=== PATIENT | female | born 1975 | race Caucasian/White ===

== ENCOUNTER 2017-08-22 10:59 | Emergency (ER) | payer SELFPAY ==
[~2017-08-22] VITALS: Ht 162.5 cm; Wt 90.7 kg
[2017-08-22] MEDS ORDERED: Peridex 473 ML473 ML PO (11:42)
[2017-08-22] MEDS ORDERED: PENICILLIN VK500 MG PO (11:42)
[2017-08-22] MEDS ORDERED: NAPROSYN500 MG PO (11:42)
== END 2017-08-22 14:11 | disposition home or self-care (01) ==
LOC: ED 10:59
DX: K02.9 Dental caries, unspecified (principal); R03.0 Elevated blood-pressure reading, without diagnosis of hypertension

== ENCOUNTER 2021-10-07 10:27 | Emergency (ER) | payer OTHER ==
[~2021-10-07] VITALS: Ht 162.5 cm; Wt 77.1 kg
[~2021-10-07 10:27] MED LIST: NAPROSYN500 MG PO; PENICILLIN VK500 MG PO; Peridex 473 ML473 ML PO
[2021-10-07] MEDS ORDERED: Motrin,Rufen800 MG PO (14:02)
[2021-10-07] MEDS ORDERED: CYCLOBENZAPRINE5 M3 PO (14:02)
== END 2021-10-07 14:27 | disposition home or self-care (01) ==
LOC: ED 10:27
DX: M54.12 Radiculopathy, cervical region (principal)

== ENCOUNTER 2023-11-16 07:27 | Emergency (ER) | payer OTHER ==
[~2023-11-16] VITALS: Wt 93.4 kg
[~2023-11-16 07:27] MED LIST changes: +CYCLOBENZAPRINE5 M3 PO; +Motrin,Rufen800 MG PO
[2023-11-16] MEDS ORDERED: PRENATAL MULTI1 EAC3 PO (07:46)
[2023-11-16 07:47] LABS: BASO % 0.2 % (0.0-1.0); EOS # 0.1 10*3/uL (0.0-0.4); EOS % 0.5 % (1.0-4.0); HEMATOCRIT 34.3 % (37.0-47.0); LYMPH # 2.1 10*3/uL (1.3-4.4); LYMPH % 16.1 % (27.0-41.0); MEAN CELL VOLUME 93.2 fl (81.0-99.0); MEAN CORPUSCULAR HGB 29.1 pg (27.0-31.0); MEAN CORPUSCULAR HGB CONC 31.2 g/dl (33.0-37.0); MEAN PLATELET VOLUME 10.3 fl (9.6-12.3); MONO # 0.8 10*3/uL (0.1-1.0); MONO % 6.1 % (3.0-9.0); NEUT % 76.7 % (47.0-73.0); PLATELET COUNT AUTOMATED 333 10*3/uL (130-400); RED BLOOD COUNT 3.68 10*6/uL (4.10-5.10); RED CELL DISTRI WIDTH 13.5 % (0-14.5)
[2023-11-16 08:20] LABS: VENOUS PH 7.4 (7.37-7.45)
== END 2023-11-16 09:15 | disposition short-term general hospital (02) ==
LOC: ED 07:27
PROVIDERS: Emergency Medicine
DX: O9A.213 Injury, poisoning and certain other consequences of external causes complicating pregnancy, third trimester (principal); T58.91XA Toxic effect of carbon monoxide from unspecified source, accidental (unintentional), initial encounter; Z3A.34 34 weeks gestation of pregnancy; Y92.89 Other specified places as the place of occurrence of the external cause

== ENCOUNTER 2025-05-16 20:44 | Emergency (ER) | payer SELFPAY ==
[~2025-05-16] VITALS: Ht 162.5 cm; Wt 82.1 kg
[~2025-05-16 20:44] MED LIST changes: +PRENATAL MULTI1 EAC3 PO
[2025-05-16] MEDS ORDERED: AMOXICILLIN 500 MG CAP PO ONE (21:25)
[2025-05-16] MEDS ORDERED: AMOXICILLIN500 M3 PO (21:26)
== END 2025-05-16 21:33 | disposition home or self-care (01) ==
LOC: ED 20:44
DX: J01.90 Acute sinusitis, unspecified (principal)